=== PATIENT | female | born 1985 ===

== ENCOUNTER 2016-10-09 12:59 | Inpatient (IN) ==
[2016-10-09] MEDS ORDERED: hydrALAZINE 20 MG/1 ML VIAL IM ONE (14:43)
--- NOTE | 2016-10-09 16:22 | Ultrasound Report ---
US OB biophys profile Indication: Transient is hypertension. Gestational diabetes. Comparison: None. Technique: Using transcutaneous probe, routine biophysical profile was performed. Ultrasound images were captured and stored. Biophysical variables including breathing, gross body movements, tone, and qualitative amniotic fluid volume scored. Findings: Each of the above physical variables were graded at +2 for a total of +8. The fetus lies in cephalic position. Heart activity is present with a heart rate of 130 beats per minute. The amniotic fluid index is 3.91cm. Impression: 1. biophysical profile score 8; normal with low risk for chronic asphyxia. 2. Findings compatible with oligohydramnios. 10/09/2016 4:19 PM PROCEDURE INTERPRETED AT [facility] DEPARTMENT OF RADIOLOGY Final Report Signed by: Dr. Phan Ryan
--- NOTE | 2016-10-09 18:09 | Ultrasound Report ---
US OB limited Indication: PIH. Gestational diabetes. Evaluation of estimated weight. Comparison: None. Technique: Using transabdominal probe, multiple grayscale, color Doppler, and M-mode Doppler images of the fetus were captured and stored. Findings: Single cephalic fetus is demonstrated with fundal placenta. heart rate is 126 bpm. No appreciable amniotic fluid is present. Measurements of biparietal diameter is 6 weeks 1 day, head circumference 36 weeks 6 days, abdominal circumference 33 weeks 4 days, and femur length 33 weeks 0 days result next may composite gestational age of 34 weeks 6 days. Estimated date of delivery is 11/14/2016. Estimated weight is 2323 g. The femur length to head circumference ratio is minimally low. Impression: 1. Estimated weight is 2323 g. 2. Oligohydramnios is present. 10/09/2016 6:04 PM PROCEDURE INTERPRETED AT [facility] DEPARTMENT OF RADIOLOGY Final Report Signed by: Dr. Phan Ryan
[2016-10-09] MEDS ORDERED: LACTATED RINGERS 250 ML IV ONE (18:37)
[2016-10-09] MEDS ORDERED: BUTORPHANOL 2 MG/ML VIAL IV PRN (18:37)
[2016-10-09] MEDS ORDERED: MEPERIDINE 50 MG/1 ML VIAL IV PRN (18:37)
[2016-10-09] MEDS ORDERED: ONDANSETRON 4 MG/2 ML VIAL IV PRN (18:37)
--- NOTE | 2016-10-09 18:54 | OB/GYN History & Physical ---
History of Present Illness Chief complaint: Patient presented for evaluation of fetus status. History of present illness: Ms. Kwon is a 31 year old female 4 para 2 AB 1 living 2. Her DORI is for an estimated gestational age of 36 weeks and 4 days. She presented to the labor department for evaluation of status. Her blood pressure is elevated. The patient also has a history of gestational diabetes. She had a nonstress tests which revealed a CAT 1 tracing. However a biophysical profile was performed and the patient was noted to have a lag in growth. She also had oligohydramnios and an CORINA of 3.1. In light of these findings patient will be admitted for active management of suspected IUGR, gestational diabetes, in decreased CORINA. The risk and benefits of been thoroughly discussed with this patient and significant other, plan of care has been discussed with Dr. Ramos and all parties are in agreement plan. The patient has received her care through the [facility] in [facility]. She has received routine care, her care has been complicated by the above- mentioned problems. Home Medications Medication Instructions Recorded Confirmed Type Multivitamin () [ 1 tablet PO DAILY 10/09/16 10/09/16 History Vitamin] Allergies Allergy/AdvReac Type Severity Reaction Status Date / Time Penicillins AdvReac RASH Verified 10/09/16 13:28 12 point system: reviewed and no additional remarkable complaints except as stated Medical,Surgical,& Family Hx - Medical History Cardio: History of: Hypertension Endocrine: History of: Diabetes Mellitus (NIDDM) - Surgical History Surgical History: noncontributory - Family History Family History: Reports;: Family Diabetes (Father) - Social History Smoking Status: Never smoker Marital Status: Single Lives With:: Significant Other Functional capacity: independent ambulation 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 - Constitutional Vitals: Vital Signs Temp Pulse Resp BP 10/09/16 16:00 98.3 F 51 L 18 142/85 General appearance: no acute distress - Antepartum / Post Antepartum Exam Cervix - Dilatation: 1 cm Effacement: 50% Station: -3 Rupture: Intact Presentation: Vertex Heart Rate: 130s-140s Vagina: Present: normal moisture Uterus exam: Present: enlarged Anus/Rectum: Present: normal perianal skin - Head Head exam: Present: normal inspection - Respiratory Respiratory exam: Present: clear to auscultation bilaterally - Cardiovascular Cardiovascular exam: Present: regular rate and rhythm - GI/Abdominal GI/Abdominal exam: Present: normal bowel sounds, soft - Extremities Exam Extremities exam: Present: normal inspection - Neurological Exam Neurological exam: Present: alert, oriented X3 - Psychiatric Psychiatric exam: Present: normal affect, normal mood - Skin Skin exam: Present: normal color, warm Assessment and Plan (1) Gestational [-induced] hypertension without significant proteinuria , complicating childbirth Status: Acute Assessment and plan: Admit IV fluids Hypertensive management Active management of PIH, gestational diabetes, and oligohydramnios Current Visit: Yes (2) Gestational diabetes Status: Acute Current Visit: Yes (3) IUGR (intrauterine growth restriction) Status: Acute Current Visit: Yes
[2016-10-09 19:09] LABS: Basophils % 0.3 % (0.0-0.8); Eosinophils # 0.1 10*3/uL (0.0-0.87); Eosinophils % 0.9 % (0.00-10.9); Hematocrit 37.3 VOL% (35.7-47.0); Hemoglobin 13.1 GM/DL (12.0-16.0); Immature Granulocytes % 0.5 %; Immature Granulocytes Absolute 0.06 #; Lymphocytes # 2.6 10*3/uL (1.4-4.0); Lymphocytes % 22.5 % (21.3-54.2); Mean Corpuscular HGB Conc 35.1 GM/DL (32-36); Mean Corpuscular Hemoglobin 32 PG (27-34); Mean Corpuscular Volume 91.2 FL (87-102); Mean Platelet Volume 10.3 FL (9.6-12.0); Monocytes # 0.8 10*3/uL (0.11-0.8); Neutrophils # 7.9 10*3/uL (1.4-7.4); Neutrophils % 68.8 % (38.7-73.9); Platelet Count 292 T/CUMM (130-400); Red Blood Count 4.09 MC/CUMM (3.8-5.5); Red Cell Distribution Width 13.5 % (9.3-17.3); White Blood Count 11.5 T/CUMM (4-12)
[2016-10-09] MEDS: LACTATED RINGERS 1,000 ML IV SCH (19:20)
[2016-10-09 19:41] LABS: Alanine Aminotransferase 14 U/L (13-56); Albumin 2.6 G/DL (3.4-5.0); Alkaline Phosphatase 160 U/L (45-117); Aspartate Amino Transferase 10 U/L (0-37); Bilirubin,Total < 0.39 MG/DL (0.2-1.0); Blood Urea Nitrogen 8 MG/DL (7-18); Calcium 8.8 MG/DL (8.5-10.1); Glucose 73 MG/DL (74-106); Osmolality,Calculated 277.3 MOS/KG (273-304); Potassium 3.7 MMOL/L (3.5-5.1); Sodium 141 MMOL/L (136-145); Total Protein 6.2 G/DL (6.4-8.3); Uric Acid 5.5 MG/DL (2.6-6.0)
[2016-10-09 20:06] LABS: Hepatitis B Surface Ag Quant 0.52 Index; Hepatitis B Surface Ag Result Negative (Negative)
[2016-10-09 20:07] LABS: Rubella Antibody IgG 83.2 IU/ML
[2016-10-09 20:35] LABS: HIV Antigen/Antibody Result Nonreactive (Nonreactive)
[2016-10-09] MEDS: LABETALOL 200 MG TABLET PO SCH (21:01)
[2016-10-09 22:56] LABS: INR 0.9; PT Patient Result 9.4 SECS; Partial Thromboplastin Time 27.7 SECS (0-40)
[2016-10-10] MEDS: LACTATED RINGERS 1,000 ML IV SCH ×4 (00:03→19:46)
[2016-10-10] MEDS: LABETALOL 200 MG TABLET PO SCH ×2 (08:26→21:06)
[2016-10-10] MEDS ORDERED: DINOPROSTONE VAG GEL 10 MG SYRINGE VAG ONE ×2 (09:32→09:33)
--- NOTE | 2016-10-10 11:48 | Event Note ---
1108: Vaginal exam performed the patient is 1 cm/50-60%/vertex/-2 station. Will proceed with a Prostin induction due to IUGR, PIH, and poly-hydramnios. The risk and benefits of been thoroughly discussed with this patient and significant other, plan of care has been discussed with Dr. Ramos and all parties are in agreement with plan. Prostin gel inserted without difficulty.
[2016-10-10] MEDS ORDERED: FAMOTIDINE 20 MG/2 ML VIAL IV ONE (11:55)
[2016-10-10] MEDS ORDERED: diphenhydrAMINE 50 MG/1 ML VIAL IV PRN (11:55)
[2016-10-10] MEDS ORDERED: fentaNYL 2 MCG/ROPIV 0.2% EPID 150 ML EPIDURAL SCH (11:55)
[2016-10-10] MEDS ORDERED: ePHEDrine 50 MG/ML AMP IV PRN (11:55)
[2016-10-10] MEDS ORDERED: CITRIC ACID/SODIUM CITRATE 30 ML UDCUP PO ONE (11:55)
[2016-10-10] MEDS ORDERED: PROMETHAZINE 25 MG/1 ML VIAL IM ONE (11:55)
[2016-10-10] MEDS ORDERED: CLINDAMYCIN INJ 900 MG in PREMIX 1 EACH IV SCH (12:00)
[2016-10-10 12:46] LABS: Basophils % 0.4 % (0.0-0.8); Eosinophils # 0.1 10*3/uL (0.0-0.87); Eosinophils % 0.6 % (0.00-10.9); Hematocrit 35.9 VOL% (35.7-47.0); Hemoglobin 12.4 GM/DL (12.0-16.0); Immature Granulocytes % 0.6 %; Immature Granulocytes Absolute 0.06 #; Lymphocytes # 2.2 10*3/uL (1.4-4.0); Lymphocytes % 21.1 % (21.3-54.2); Mean Corpuscular HGB Conc 34.5 GM/DL (32-36); Mean Corpuscular Hemoglobin 32 PG (27-34); Mean Corpuscular Volume 93.2 FL (87-102); Mean Platelet Volume 10.2 FL (9.6-12.0); Monocytes # 0.7 10*3/uL (0.11-0.8); Monocytes % 6.6 % (1.7-12.7); Neutrophils # 7.2 10*3/uL (1.4-7.4); Neutrophils % 70.7 % (38.7-73.9); Platelet Count 289 T/CUMM (130-400); Red Blood Count 3.85 MC/CUMM (3.8-5.5); Red Cell Distribution Width 13.7 % (9.3-17.3); White Blood Count 10.2 T/CUMM (4-12)
[2016-10-10 13:02] LABS: INR 0.9; PT Patient Result 9.4 SECS; Partial Thromboplastin Time 28.8 SECS (0-40)
[2016-10-10 13:22] LABS: Alanine Aminotransferase 13 U/L (13-56); Albumin 2.4 G/DL (3.4-5.0); Alkaline Phosphatase 150 U/L (45-117); Aspartate Amino Transferase 11 U/L (0-37); Bilirubin,Total < 0.39 MG/DL (0.2-1.0); Blood Urea Nitrogen 10 MG/DL (7-18); Calcium 8.6 MG/DL (8.5-10.1); Glucose 83 MG/DL (74-106); Osmolality,Calculated 276.4 MOS/KG (273-304); Sodium 140 MMOL/L (136-145); Total Protein 5.9 G/DL (6.4-8.3); Uric Acid 5.7 MG/DL (2.6-6.0)
[2016-10-10] MEDS ORDERED: OXYTOCIN/LR 20 UNIT/1,000 ML BAG IV SCH (15:30)
[2016-10-10] MEDS ORDERED: OXYTOCIN/LR 20 UNIT/1,000 ML BAG IV ONE ×2 (16:03→21:35)
[2016-10-10] MEDS ORDERED: OXYTOCIN 10 UNIT/ML VIAL IM ONE (16:03)
[2016-10-10] MEDS ORDERED: OXYTOCIN/LR 30 UNIT/1,000 ML BAG IV ONE (20:58)
--- NOTE | 2016-10-10 21:34 | Event Note ---
Stage I of labor Diagnoses IUGR at 36 weeks Prostaglandin gel Amnioinfusion heart tones with basically a stage I category 1 labor pattern of heart tones. Subsequently occasional variable decelerations. Responded well to positioning and O2. IV Pitocin Epidural anesthetic scalp elect line Stage II of labor Delivery of a male at 2122 4 lbs. 11 oz., 8 at 1 minute 9 at 5 minutes Cord blood and cord gas obtained Stage III Placenta delivered without any complications The placenta was very small Estimated blood loss less than 250 No lacerations were noted Mother stable nursery present for this delivery
[2016-10-10] MEDS ORDERED: HYDROCORTISONE 2.5% RECTAL CREAM 30 GM TUBE TOP PRN (21:35)
[2016-10-10] MEDS ORDERED: LANOLIN 50% CREAM 0.3 OZ TUBE TOP PRN (21:35)
[2016-10-10] MEDS ORDERED: IBUPROFEN 800 MG TABLET PO PRN (21:35)
[2016-10-10] MEDS ORDERED: RHO(D) IMMUNE GLOBULIN 300 MCG SYRINGE IM ONE (21:35)
[2016-10-10] MEDS ORDERED: oxyCODONE/ACETAMINOPHEN 5-325 MG TABLET PO PRN ×2 (21:35)
[2016-10-10] MEDS ORDERED: WITCH HAZEL PADS 100/JAR TOP PRN (21:35)
[2016-10-10] MEDS ORDERED: DIPH/TET/ACEL PERT BOOSTER VACCINE 0.5 ML VIAL IM ONE (21:35)
[2016-10-10] MEDS ORDERED: ACETAMINOPHEN 325 MG TABLET PO PRN (21:35)
[2016-10-10] MEDS ORDERED: BISACODYL 10 MG SUPP RECTAL PRN (21:35)
[2016-10-10] MEDS ORDERED: ONDANSETRON 4 MG/2 ML VIAL IV PRN (21:35)
[2016-10-10] MEDS ORDERED: MEASLES/MUMPS/RUBELLA VACCINE 0.5 ML VIAL SUBCUT ONE (21:35)
[2016-10-10] MEDS ORDERED: BENZOCAINE 20%/MENTHOL 0.5% SPRAY 56 GM CAN TOP PRN (21:35)
[2016-10-10 21:38] LABS: Cord Arterial Blood HCO3 25.6 MMOL/L
[2016-10-10 21:41] LABS: Cord Venous Blood HCO3 20.4 MMOL/L; Cord Venous Blood PCO2 50.3 MMHG; Cord Venous Blood PO2 22.2
[2016-10-10] MEDS ORDERED: hydrALAZINE 20 MG/1 ML VIAL IV ONE (22:01)
[2016-10-11 05:16] LABS: Basophils % 0.3 % (0.0-0.8); Eosinophils # 0.1 10*3/uL (0.0-0.87); Hematocrit 34.2 VOL% (35.7-47.0); Immature Granulocytes % 0.5 %; Immature Granulocytes Absolute 0.06 #; Lymphocytes # 2.2 10*3/uL (1.4-4.0); Mean Corpuscular HGB Conc 35.1 GM/DL (32-36); Mean Corpuscular Hemoglobin 32 PG (27-34); Mean Corpuscular Volume 92.2 FL (87-102); Mean Platelet Volume 10.4 FL (9.6-12.0); Monocytes # 0.8 10*3/uL (0.11-0.8); Neutrophils # 7.9 10*3/uL (1.4-7.4); Neutrophils % 71.2 % (38.7-73.9); Platelet Count 247 T/CUMM (130-400); Red Blood Count 3.71 MC/CUMM (3.8-5.5); Red Cell Distribution Width 13.4 % (9.3-17.3); White Blood Count 11.2 T/CUMM (4-12)
[2016-10-11] MEDS: DOCUSATE SODIUM 100 MG CAPSULE PO SCH ×2 (09:41→21:27)
[2016-10-11] MEDS: LABETALOL 200 MG TABLET PO SCH ×2 (09:41→21:27)
--- NOTE | 2016-10-11 10:47 | Progress Note ---
Family Medicine PN Sub Interval history: day #1 Status post vaginal delivery secondary to intrauterine growth retardation. Physical exam is unremarkable Patient is ambulating, voiding without any complications Assessment plan 36 weeks gestation with IUGR Possible discharge in a.m. Exam (Progress Note) - Constitutional Vitals: Period Temp Pulse Resp BP Sys/Hargrove Pulse Ox Last 24 Hr 97.1 F-98.0 F 69-82 18-20 132-144/74-81 99-99 Results - Labs CBC & BMP: 10/11/16 04:58 10/10/16 12:36 Quality Measures - VTE Contraindication to Pharmacological VTE Prophylaxis: Clinical assessment deems Pt at low risk, no prophalaxis needed
[2016-10-12] MEDS: DOCUSATE SODIUM 100 MG CAPSULE PO SCH (08:11)
[2016-10-12] MEDS: LABETALOL 200 MG TABLET PO SCH (08:11)
[2016-10-12 08:25] VITALS: BP 139/80
--- NOTE | 2016-10-14 08:23 | Anesthesia Post-Op ---
Anesthesia Post OP - Post Ansesthetic Evaluation Patient seen in post op: Yes Resp: within normal limits CV: within normal limits Mental: within normal limits Temp: within normal limits [id number]-[id number]: within normal limits Nausea and Vomiting: within normal limits Pain: within normal limits Other:: phoned 10/14/2016
--- NOTE | 2016-10-15 12:20 | Pathology Report from [facility] ---
[facility] ACCESSION # : [id number] PATIENT NAME : Norman Gallagher ORDERING DR : BOO ADAMS MD CLINICAL HX: IUP @ 35.4 wks gestation, IUGR POST-OP DX: Same SPECIMEN INFO: Placenta GROSS DESCRIPTION: Received fresh labeled with the patients name and consists of a 263 gram placenta which measures 16.0 x 4.5 x 2.0 cm. membranes are pink-goldsmith and translucent. The umbilical cord measures 17.0 cm, contains three vessels and is eccentrically inserted. The surface is blue-norman and intact. The maternal surface is hemorrhagic and intact with scattered areas of fibrin noted which appear to be superficial. Sections submitted: A membranes and cord, B and maternal surfaces. DIAGNOSIS FOR NORMAN GALLAGHER: PLACENTA, 35.4 WEEKS GESTATIONAL AGE, VAGINAL DELIVERY: Mature placenta, 253 gms trimmed weight, <10th percentile for provided gestational age. Intraplacental infarct. Trivascular umbilical cord, 17 cm in length. COLLECTED DATE: 10/14/2016 [facility] REPORT DATE: 10/15/2016 ELECTRONICALLY SIGNED BY: Milagros Iraheta M.D. 10/15/2016 - 10:40:33 [facility]
== END 2016-10-12 13:34 | disposition home or self-care (01) | DRG 775 ==
LOC: N.LDOUT 12:59 → N.LD 13:00 → N.OB 10-10 23:55
PROVIDERS: ADMIT Obstetrics & Gynecology; ATTEND Obstetrics & Gynecology